=== PATIENT | male | born 1955 | race Caucasian/White ===

== ENCOUNTER 2024-01-13 14:01 | Outpatient (CLI) | payer OTHER, SELFPAY ==
--- NOTE | ~2024-01-13 | XR_ITS ---
EXAMINATION: XR chest 2V 01/13/2024 14:16 INDICATION: Cough PROCEDURE: 2 view chest COMPARISON: No prior studies for comparison. FINDINGS: The lungs are clear. The cardiomediastinal silhouette is within normal limits. There are no pleural effusions. There is no pneumothorax suspected. IMPRESSION: 1: NO ACUTE CARDIOPULMONARY DISEASE. Reviewed, dictated and finalized at location A.
== END 2024-01-13 14:02 ==
PROVIDERS: PCP Family Medicine Adolescent Medicine; Visit Provider Nurse Practitioner Family
DX: R05.9 Cough, unspecified (principal)
CPT/HCPCS: 71046

== ENCOUNTER 2025-09-12 12:07 | Emergency (ER) | payer OTHER, SELFPAY ==
--- NOTE | ~2025-09-12 | XR_ITS ---
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 Technique: 2 views obtained. Findings: The lungs are clear, no effusion. No pneumothorax. Heart is normal size. Mediastinal and hilar contours are within normal limits. Bony thorax no acute abnormality. Impression: No acute cardiopulmonary abnormality. Reviewed, dictated and finalized at location P. BORE HELPER Impression: No acute cardiopulmonary abnormality.
--- NOTE | 2025-09-12 12:10 | ECG_ITS ---
Test Date: 2025-09-12 12:16:51 Measurements Intervals [place] Rate: 51 P: 37 RI: 183 QRS: 8 QRSD: 96 T: 45 QT: 395 QTc: 366 Interpretive Statements SINUS BRADYCARDIA VOLTAGE CRITERIA FOR LVH MINIMAL Q WAVES- HIGH LATERAL LEADS BASELINE ARTIFACT- I, II, III, AVR, AVL, AVF, V1-V6 BORDERLINE ECG No previous ECG available for comparison Electronically Signed On 09-12-2025 12:54:53 [employer] WHE[employer] S[employer]W [employer]LE T[employer]PER by Josh Haynes D.O.
[2025-09-12 12:17] VITALS: BP 163/79; PULSE 52; RESP 16; TEMP 36.3; O2SAT 97
[2025-09-12 12:38] LABS: Hematocrit 46.8 % (42.0-52.0); Hemoglobin 15.7 g/dL (14.0-18.0); Immature Granulocyte Percent A 0.3 % (0-0.5); Lymphocytes Absolute Auto 1.79 K/mm3 (0.9-3.2); Mean Corpuscular HGB Conc 33.5 g/dl (32-36); Mean Corpuscular Hemoglobin 29.1 pg (26-34); Mean Corpuscular Volume 86.8 fl (80-100); Nucleated Red Blood Cells Absolute Auto 0.000 K/mm3 (0.0-0.012); Nucleated Red Blood Cells Perc 0.0 % (0.0-0.2); Platelet Count Result 179 k/mm3 (150-375); Red Blood Count 5.39 M/mm3 (4.6-6.20); White Blood Count 6.7 K/mm3 (4.5-10.0)
[2025-09-12 13:07] LABS: Alanine Aminotransferase 21 U/L (6-50); Albumin Level 4.6 g/dL (3.5-5.1); Alkaline Phosphatase 78 U/L (38-126); Anion Gap 4 mmol/L (4-12); Aspartate Amino Transferase 30 U/L (17-59); Bilirubin,Total 0.6 mg/dL (0.2-1.3); Blood Urea Nitrogen 19 mg/dL (9-20); Calcium 9.6 mg/dL (8.4-10.2); Carbon Dioxide 29 mmol/L (22-30); Chloride 104 mmol/L (98-107); Estimated CRCL calculation 60 ml/min; Estimated Glomerular Filt Rate > 60; Glucose 95 mg/dL (65-110); Lipase 74 U/L (23-300); Potassium 4.7 mmol/L (3.4-5.0); Sodium 137 mmol/L (137-145); Total Protein 7.9 g/dL (6.3-8.2)
[2025-09-12 13:12] LABS: INR 1.0; Prothrombin Time 12.8 Seconds (11.1-14.7)
[2025-09-12 13:13] LABS: Partial Thromboplastin Time 27.1 Seconds (22.3-36.8)
[2025-09-12 13:20] LABS: Troponin I < 0.012 ng/mL (0.000-0.034)
[2025-09-12 14:35] VITALS: BP 142/87; PULSE 65; RESP 18; O2SAT 98
--- NOTE | 2025-09-12 15:43 | ED.CHESTPAIN ---
HPI - Chest Pain General Chief Complaint: Chest Pain Stated Complaint: chest pain for a week, after cleanin snow last wee Time Seen by Provider: 09/12/25 15:12 Source: patient, RN notes reviewed and old records reviewed Mode of arrival: ambulatory Limitations: no limitations History of Present Illness HPI narrative: THis is a 70 year old male who presents for evaluation of left chest discomfort. He states that last friday he was shoveling snow and he developed left lateral chest discomfort the next day . He reports this discomfort has not gone away so he wanted to get checked out. He denies pain radiating to back, shoulder, neck or any place. HE denies associated shortness of breath, dizziness or diaphoresis. His pain does not worsen with activity. He states he is just having mild soreness. HE denies previous heart history, he familiar heart disease. Related Data Home Medications ?Medication ?Instructions ?Recorded ?Confirmed ?Last Taken ?Type No Home Medications 02/21/25 02/21/25 Unknown History Allergies Allergy/AdvReac Type Severity Reaction Status Date / Time Penicillins Allergy Unknown Unknown Verified 02/21/25 09:35 [facility] Past Medical History Medical History (Updated 09/12/25 @ 16:16 by Jewels Hein MD) Mixed hyperlipidemia Surgical History Surgical History H/O right wrist surgery screws right wrist 2004 Family History Family History Mother Diabetes mellitus Father Family history of Alzheimer's disease Social History Social History Smoking status: Never smoker Alcohol intake: never Substance use: never Lack of Transportation: No Lack of Food: Never True Current Housing: I Have Housing Concerned About Future Housing: No Difficulty Paying Gas/Electric Bills: No Difficulty Paying for Meds: No Currently Unemployed: No Education: High School Diploma/GED Difficulty w/ Childcare or Family Care: No Living arrangements: with family Occupation/Education: retired Exam Const: General: healthy appearing and no acute distress Nutritional Appearance: well nourished Orientation/consciousness: patient oriented x3 HENMT: Head: normal to inspection Eyes: EOM: EOMs intact bilaterally Neck: Neck: normal visual inspection Chest: Chest palpation & inspection: normal inspection of the chest Resp: Effort & Inspection: normal respiratory effort Auscultation: clear to auscultation bilaterally Cardio: Rate: bradycardic Rhythm: regular rhythm Heart sounds: no murmurs GI: GI Palp: Yes Soft to palpation, No Tenderness to palpation present (GI) and No Guarding due to palpation present (GI) Auscultation: normal bowel sounds Back/Spine/Pelvis: Back: no CVA tenderness Skin: General skin exam: normal color Rashes: no rashes Wounds: no wounds Neuro: General: patient oriented x3, moves all extremities and CN's II-XI intact bilaterally Extrem: General: normal to inspection, no clubbing, cyanosis or edema and no pedal edema Psych: Mental Status: mental status grossly normal Affect: normal affect Attitude: cooperative Course Reevaluation(s) Reevaluation #1: I discussed with patient that troponin has been negative so no OK. He still may need outpatient evaluation of his heart. HE understands and he will follow up with PCP Date: 09/12/25 Time: 15:00 Vital Signs Vital signs: Vital Signs Temperature 97.4 F L 09/12/25 12:17 Pulse Rate 52 L 09/12/25 12:17 Respiratory Rate 16 09/12/25 12:17 Blood Pressure 163/79 H 09/12/25 12:17 Pulse Oximetry 97 09/12/25 12:17 Oxygen Delivery Room Air 09/12/25 12:17 Temperature 97.4 F L 09/12/25 12:17 Pulse Rate 65 09/12/25 14:35 Respiratory Rate 18 09/12/25 14:35 Blood Pressure 142/87 H 09/12/25 14:35 Pulse Oximetry 98 09/12/25 14:35 Oxygen Delivery Room Air 09/12/25 12:17 [facility] Narrative Medical decision making narrative: Patient is relatively healthy. Presented with atypical chest pain. EKG done with labs. EKG shows sinus bradycardia and he states he has always had bradycardia since he was younger. Troponin negative x 2. He does not reports any signs of DVT so PE Seems unlikely. I reviewed he did not have OK but he may still benefit for outpatient evaluation by PCP and possible outpatient stress. I have discussed with patient and he is comfortable with discharge and follow up. Heart score is 3 so low risk. Differential Diagnosis Differential Diagnosis: muscle strain, rib fracture, PE, ACS, OK, angina. Lab Data MDM Lab Attestation statement: I personally reviewed the patient's lab results. 09/12/25 12:26 09/12/25 12: Labs: Lab Results 09/12/25 09/12/25 Range/Units 12: 15:19 WBC 6.7 (4.5-10.0) K/mm3 RBC 5.39 (4.6-6.20) M/mm3 Hgb 15.7 (14.0-18.0) g/dL Hct 46.8 (42.0-52.0) % MCV 86.8 (80-100) fl MCH 29.1 (26-34) pg MCHC 33.5 (32-36) g/dl RDW 12.8 (11.5-14.5) % Plt Count 179 (150-375) k/mm3 MPV 10.6 H (7.4-10.4) fl Immature Gran % (Auto) 0.3 (0-0.5) % Neut % (Auto) 61.5 (45.5-73.1) % Lymph % (Auto) 26.6 (18.3-44.2) % [place] % (Auto) 7.6 (2.6-8.5) % Eos % (Auto) 3.0 (0-4.4) % Baso % (Auto) 1.0 (0.2-1.2) % Lymph # (Auto) 1.79 (0.9-3.2) K/mm3 [place] # (Auto) 0.5 (0.1-0.6) K/mm3 Eos # (Auto) 0.2 (0-0.3) K/mm3 Baso # (Auto) 0.1 (0.0-0.1) K/mm3 Abs Immat Gran (auto) 0.02 (0.00-0.031) K/mm3 Absolute Neuts (auto) 4.2 (1.3-6.7) K/mm3 Absolute Nucleated RBC 0.000 (0.0-0.012) K/mm3 Nucleated RBC % 0.0 (0.0-0.2) % PT 12.8 (11.1-14.7) Seconds INR 1.0 APTT 27.1 (22.3-36.8) Seconds Sodium 137 (137-145) mmol/L Potassium 4.7 (3.4-5.0) mmol/L Chloride 104 (98-107) mmol/L Carbon Dioxide 29 (22-30) mmol/L Anion Gap 4 (4-12) mmol/L BUN 19 (9-20) mg/dL Creatinine 1.16 (0.7-1.3) mg/dL Estim Creat Clear Calc 60 ml/min Estimated GFR > 60 (59 - ) Glucose 95 (65-110) mg/dL Calcium 9.6 (8.4-10.2) mg/dL Total Bilirubin 0.6 (0.2-1.3) mg/dL AST 30 (17-59) U/L ALT 21 (6-50) U/L Alkaline Phosphatase 78 (38-126) U/L Troponin I < 0.012 < 0.012 (0.000-0.034) ng/mL Total Protein 7.9 (6.3-8.2) g/dL Albumin 4.6 (3.5-5.1) g/dL Lipase 74 (23-300) U/L Imaging Data Radiologist's impression: ITS Impressions Chest X-Ray 09/12/25 14:24 Impression: No acute cardiopulmonary abnormality. ECG Data EKG #1: Attestation: I personally reviewed and interpreted this ECG as follows: ECG completion date: 09/12/25 ECG completion time: 12:16 bradycardia (51), sinus rhythm, no ST changes and no acute changes Discharge Plan Discharge Clinical Impression: Atypical chest pain Patient Disposition: Home Condition: Stable Instructions: Antibiotic Form, Chest Pain (ED) Additional Instructions: Please call your primary care provider tomorrow to arrange for follow up . Return to ER if your symptoms worsen. Patient Language: Liberian Prescriptions: No Action No Home Medications Follow-up/Referrals: Josue Patel MD [Primary Care Provider, Family Practice] Quality HEART score for chest pain patients History: slightly suspicious ECG: normal Age: > or = to 65 years Risk factors: 1 or 2 risk factors Troponin: < or = to 1x normal limit Heart score: 3
[2025-09-12 15:53] LABS: Troponin I < 0.012 ng/mL (0.000-0.034)
== END 2025-09-12 16:35 | disposition home or self-care (01) ==
PROVIDERS: Emergency Medicine; Emergency Provider General Practice; PCP Family Medicine Adolescent Medicine
DX: R07.89 Other chest pain (principal); R00.1 Bradycardia, unspecified; E78.2 Mixed hyperlipidemia
CPT/HCPCS: 36415; 71046; 80053; 83690; 84484; 85025; 85610; 85730; 93005; 99284